=== PATIENT | male | born 1985 | race Caucasian/White ===

== ENCOUNTER 2023-06-26 11:50 | Emergency (ER) | payer OTHER ==
[~2023-06-26] VITALS: Ht 167.6 cm; Wt 90.9 kg
[2023-06-26 16:23] VITALS: BP 122/81
== END 2023-06-26 16:28 | disposition home or self-care (01) ==
LOC: ED 11:50 → EDBD 11:53 → ED 11:53
DX: L03.115 Cellulitis of right lower limb (principal)
CPT/HCPCS: 93970; 99283-25

== ENCOUNTER 2023-08-12 08:12 | Emergency (ER) | payer OTHER ==
[~2023-08-12] VITALS: Ht 167.6 cm; Wt 95.0 kg
[2023-08-12 09:24] LABS: BASOPHILS 0.5 % (0-2); EOSINOPHILS 0.3 % (0-6); HEMATOCRIT 43.2 % (35.0-50.0); HEMOGLOBIN 14.5 g/dL (12.0-18.0); LYMPHOCYTES 11.3 % (24-44); MCH 29.4 (27-36); MCHC 33.7 g/dl (30-36); MCV 87.3 fl (81-99); MONOCYTES 5.1 % (0-12); NEUTROPHILS 82.8 % (39-80); PLATELET COUNT 148 K/uL (140-440); RBC 4.95 M/ul (4.3-5.7); RDW 12.8 (10.5-15.0)
[2023-08-12 09:38] LABS: ALBUMIN/GLOBULIN RATIO 1.08 (1.1-2.4); ANION GAP 10.3 (7-21); BILIRUBIN, TOTAL 0.7 ng/dL (0.2-1.0); BUN/CREATININE RATIO 18.18 (6.0-28.6); CALCIUM 8.7 mg/dL (8.5-10.1); CREATININE, SERUM 0.88 mg/dL (0.70-1.30); POTASSIUM 4.3 mmol/L (3.5-5.1); PROTEIN, TOTAL 7.7 g/dL (6.4-8.2)
[2023-08-12 10:10] VITALS: BP 119/81
--- NOTE | 2023-08-13 13:16 | EKG ---
[facility] [address] [facility] [place], [place] [address] Signed Normal sinus rhythm Normal ECG No previous ECGs available Confirmed by NIMESH MCNEILL MD ([id number]) on 08/13/2023 1:15:51 PM Electronically Signed By: NIMESH MCNEILL 08/13/23 1316 PATIENT NAME: MARTINA SIM Electrocardiogram DATE OF : 85 PHYSICIAN: NIMESH MCNEILL REPORT #: [id number] REPORT IS CONFIDENTIAL AND NOT TO BE RELEASED WITHOUT AUTHORIZATION
== END 2023-08-12 10:12 | disposition home or self-care (01) ==
LOC: ED 08:12
PROVIDERS: Emergency Medicine
DX: R07.81 Pleurodynia (principal); I50.9 Heart failure, unspecified
CPT/HCPCS: 36415; 71045; 80053; 84484; 85025; 85379; 93005; 93010; 93971